=== PATIENT | male | born 1980 | race Caucasian/White ===

== ENCOUNTER 2018-06-03 23:12 | Inpatient (IN) | payer OTHER ==
[2018-06-03 23:27] VITALS: BMI 36.1
[2018-06-04] MEDS ORDERED: SODIUM CHLORIDE 0.9% 1000 ML INFUS.BAG IV ONE (01:22)
[2018-06-04] MEDS ORDERED: METOCLOPRAMIDE HCL INJECTION 10 MG/2 ML VIAL IVPUSH ONE (01:22)
[2018-06-04] MEDS ORDERED: FAMOTIDINE 20 MG/50 ML IVPB 20 MG/50 ML MG IVPB ONE (01:22)
[2018-06-04] MEDS ORDERED: ACETAMINOPHEN 1000 MG/100 ML VIAL (NON FORMULARY) IVPB ONE (01:22)
[2018-06-04] MEDS ORDERED: METOCLOPRAMIDE HCL INJECTION 10 MG/2 ML VIAL ONE (01:24)
[2018-06-04 01:59] LABS: BASO % 0.8 % (0-2.0); EOS % 0.5 % (0-4.5); HEMATOCRIT 42.6 % (35.4-49); HEMOGLOBIN 14.7 GM/dL (11.7-16.9); LYMPH % 16.9 % (8-40); MCH 31.9 pg (25.7-33.7); MCHC 34.5 g/dl (32.0-35.9); MEAN CELL VOLUME 92.5 fl (80-96); MEAN PLT VOLUME 9.8 fl (7.5-11.1); NEUT % 66.8 % (42.8-82.8); PLATELET COUNT 114 K/MM3 (134-434); RDW 13.8 % (11.9-15.9); WHITE BLOOD COUNT 6.3 K/mm3 (4.0-10.0)
[2018-06-04 02:00] LABS: VENOUS PC02 38.4 mmHg (41-51); VENOUS PH 7.42 (7.31-7.41)
--- NOTE | 2018-06-04 02:07 | PDOC ---
Documentation entered by Jhonny Streeter SCRIBE, acting as scribe for Jovita Robertson DO. Jovita Robertson DO: This documentation has been prepared by the Syl ardon Nirvannie, SCRIBE, under my direction and personally reviewed by me in its entirety. I confirm that the documentation accurately reflects all work, treatment, procedures, and medical decision making performed by me. History of Present Illness - General Chief Complaint: Weakness Stated Complaint: PAIN Time Seen by Provider: 06/04/18 01:05 History Source: Patient Exam Limitations: No Limitations - History of Present Illness Initial Comments: 06/04/18 02:14 The patient is a 37 year old male, with a significant past medical history of MS , who presents to the emergency department with, 4 days of diffuse weakness and dizziness after receiving his first infusion of Ocrevus. He notes 4 days ago during his infusion he was pre-treated with Benadryl and Solumedrol, however, snf through his infusion he developed a rash to his face and head thus, he was administered more Benadryl and steroids and the remainder of his infusion. Patient notes an associated 5 episode of diarrhea with associated burning epigastric pain, today prompting his to call his neurologists colleague who advised him to drink Gatorade and report to the ED for further evaluation for any new or worsening symptoms. He denies any recent fevers or chills. He denies any recent nausea, vomit, or constipation. He denies any recent chest pain or shortness of breath. He denies any recent dysuria, frequency, urgency or hematuria. Allergies: [facility] Primary Care Physician: Dr. Mohan Neurologist: Dr. Kenzie Caicedo ([facility]) Past History - Past Medical History Allergies/Adverse Reactions: Allergies Allergy/AdvReac Type Severity Reaction Status Date / Time No Known Allergies Allergy Verified 06/03/18 23:27 Home Medications: Ambulatory Orders Acetaminophen W/ Codeine #3 [Tylenol # 3 -] 1 tab PO Q6H PRN 06/04/18 Baclofen 5 mg PO PRN 06/04/18 Cancer: (Benign Frontal lob lesion/Treated w/steroids) COPD: No Other medical history: MULTIPLE SCLEROSIS - Immunization History Immunization Up to Date: Yes - Suicide/Smoking/Psychosocial Hx Smoking Status: No Smoking History: Never smoked Have you smoked in the past 12 months: No Number of Cigarettes Smoked Daily: 0 Hx Alcohol Use: No Drug/Substance Use Hx: No Substance Use Type: None Hx Substance Use Treatment: No Review of Systems - Review of Systems Able to Perform ROS?: Yes Comments:: 06/04/18 02:14 GENERAL/CONSTITUTIONAL: +Weakness. No fever or chills. HEAD, EYES, EARS, NOSE AND THROAT: No change in vision. No ear pain or discharge. No sore throat. GASTROINTESTINAL: +Diarrhea. No nausea, vomiting, or constipation. GENITOURINARY: No dysuria, frequency, or change in urination. CARDIOVASCULAR: No chest pain or shortness of breath. RESPIRATORY: No cough, wheezing, or hemoptysis. MUSCULOSKELETAL: No joint or muscle swelling or pain. No neck or back pain. SKIN: No rash NEUROLOGIC: +Dizziness. No headache, loss of consciousness, or change in strength/sensation. ENDOCRINE: No increased thirst. No abnormal weight change. HEMATOLOGIC/LYMPHATIC: No anemia, easy bleeding, or history of blood clots. ALLERGIC/IMMUNOLOGIC: No hives or skin allergy. All Other Systems: Reviewed and Negative *Physical Exam - Vital Signs Last Vital Signs Temp Pulse Resp BP Pulse Ox 98.1 F 73 18 142/94 94 L 06/03/18 23:23 06/03/18 23:23 06/03/18 23:23 06/03/18 23:23 06/03/18 23:23 - Physical Exam Comments: 06/04/18 02:14 Constitutional: +Fatigue and weak appearing. +Pale. Awake, alert, oriented. No acute distress. Head: Normocephalic. Atraumatic Eyes: PERRL. EOMI. Conjunctivae are not pale. ENT: +Mucous membranes are dry. Posterior pharynx without exudates or erythema. Uvula midline. Neck: Supple. Full ROM. No lymphadenopathy. Cardiovascular: Regular rate. Regular rhythm. S1, S2 regular. Distal pulses are 2+ and symmetric. Pulmonary/Chest: No evidence of respiratory distress. Clear to auscultation bilaterally No wheezing, rales or rhonchi. Abdominal: +Mild epigastric discomfort. Soft and non-distended. No rebound, guarding or rigidity. No organomegaly. No palpable masses. Good bowel sounds. Back: No CVA tenderness. Musculoskeletal: No edema. No cyanosis. No clubbing. Full range of motion in all extremities. No calf tenderness. Radial/pedal pulses are intact and 2+ bilaterally Skin: Skin is warm and dry. No petechiae. No purpura. Neurological: +Speaking is short sentences. Alert and oriented to person, place , and time. Cranial nerves II-XII are grossly intact. Strength is grossly symmetric. No sensory deficits. Psychiatric: Good eye contact. Normal interaction, affect and behavior. Heart Score/ECG Review - ECG Intrepretation Comment:: 06/04/18 02:09 sinus antoine at 54, nl axis, t wave inversions III, early repol, peaked t waves anterior leads, no acute st changes ED Treatment Course - LABORATORY CBC & Chemistry Diagram: 06/04/18 01:45 06/04/18 01:45 - RADIOLOGY Radiology Studies Ordered: Category Date Time Status CHEST - PA [RAD] Stat Radiology 06/04/18 01:23 Ordered - Medications Given in the ED: ED Medications Discontinued Medications Generic Name Dose Route Start Last Admin Trade Name Jelaniq PRN Reason Stop Dose Admin Metoclopramide HCl 10 mg 06/04/18 01:22 06/04/18 01:27 Reglan Injection - IVPUSH 06/04/18 01:23 10 mg ONCE ONE Administration Sodium Chloride 1,000 ml 06/04/18 01:22 06/04/18 01:23 Normal Saline - IV 06/04/18 01:23 1,000 ml ONCE ONE Administration Medical Decision Making - Medical Decision Making 06/04/18 01:40 a/p: 37yo male with hx of MS who follows with [facility] who had a new infusion of Ocrevus on Friday for his MS -had a transfusion reaction after it was performed -diarrhea since -generally weak -decreased po intake -pt needing assitance for ambulation -will send labs, medicate, ivf hydration -routing medication - though first dose of this IV med -no recent flairups of his MS -will monitor and reassess 06/04/18 02:18 no elevated wbc chem pending pt signed out to the oncoming ED physician pending labs and discussion with PMD *DC/Admit/Observation/Transfer Diagnosis at time of Disposition: Adverse drug reaction - Discharge Dispostion Condition at time of disposition: Fair - Referrals Referrals: ON STAFF,NOT [Non Staff, Medical] - - Patient Instructions - Post Discharge Activity - Attestations Physician Attestion: 06/04/18 02:19 I, Dr. Jovita Robertson, DO, attest that this document has been prepared under my direction and personally reviewed by me in its entirety. I further attest, that it accurately reflects all work, treatment, procedures and medical decision -making performed by me.
[2018-06-04 02:20] LABS: ALBUMIN 3.3 g/dl (3.4-5.0); ALK PHOS 63 U/L (45-117); ANION GAP 5 MMOL/L (8-16); BILIRUBIN,TOTAL 0.6 mg/dL (0.2-1); BLOOD UREA NITROGEN 14 mg/dL (7-18); CALCIUM 8.4 mg/dL (8.5-10.1); CHLORIDE 110 mmol/L (98-107); CO2 28 mmol/L (21-32); CREATININE 0.8 mg/dL (0.55-1.3); GLUCOSE,RANDOM 104 mg/dL (74-106); LIPASE 170 U/L (73-393); MAGNESIUM 2.1 mg/dL (1.8-2.4); POTASSIUM 3.7 mmol/L (3.5-5.1); SGOT/AST 19 U/L (15-37); SGPT/ALT 36 U/L (13-61); SODIUM 143 mmol/L (136-145); TOT PROT 6.2 g/dl (6.4-8.2)
[2018-06-04 02:46] LABS: URINE APPEARANCE CLEAR; URINE BILIRUBIN NEGATIVE (NEGATIVE); URINE COLOR YELLOW; URINE GLUCOSE (UA) NEGATIVE (NEGATIVE); URINE KETONE NEGATIVE (NEGATIVE); URINE LEUK ESTERASE NEGATIVE (NEGATIVE); URINE NITRITE NEGATIVE (NEGATIVE); URINE PROTEIN NEGATIVE (NEGATIVE); URINE UROBILINOGEN 0.2 mg/dL (0.2-1.0)
--- NOTE | 2018-06-04 05:27 | PDOC ---
*Physical Exam - Vital Signs Last Vital Signs Temp Pulse Resp BP Pulse Ox 98.1 F 58 L 18 89/51 L 96 06/04/18 04:32 06/04/18 04:32 06/03/18 23:23 06/04/18 04:32 06/04/18 04:32 ED Treatment Course - LABORATORY CBC & Chemistry Diagram: 06/04/18 01:45 06/04/18 01:45 - ADDITIONAL ORDERS Additional order review: Laboratory Results 06/04/18 06/04/18 06/04/18 01:45 01:45 01:45 VBG pH 7.42 H POC VBG pCO2 38.4 L POC VBG pO2 126 H VBG HCO3 24.6 VBG O2 Sat ([place]) 99.0 H VBG Base Excess 0.8 Sodium 143 Potassium 3.7 Chloride 110 H Carbon Dioxide 28 Anion Gap 5 L BUN 14 Creatinine 0.8 Creat Clearance w eGFR 107.62 Random Glucose 104 Lactic Acid 1.2 Calcium 8.4 L Magnesium 2.1 Total Bilirubin 0.6 AST 19 ALT 36 Alkaline Phosphatase 63 Total Protein 6.2 L Albumin 3.3 L Lipase 170 Urine Color Urine Appearance Urine pH Ur Specific [place] Urine Protein Urine Glucose (UA) Urine Ketones Urine Blood Urine Nitrite Urine Bilirubin Urine Urobilinogen Ur Leukocyte Esterase 06/04/18 01:22 VBG pH POC VBG pCO2 POC VBG pO2 VBG HCO3 VBG O2 Sat ([place]) VBG Base Excess Sodium Potassium Chloride Carbon Dioxide Anion Gap BUN Creatinine Creat Clearance w eGFR Random Glucose Lactic Acid Calcium Magnesium Total Bilirubin AST ALT Alkaline Phosphatase Total Protein Albumin Lipase Urine Color Yellow Urine Appearance Clear Urine pH 6.0 Ur Specific [place] 1.013 Urine Protein Negative Urine Glucose (UA) Negative Urine Ketones Negative Urine Blood Negative Urine Nitrite Negative Urine Bilirubin Negative Urine Urobilinogen 0.2 Ur Leukocyte Esterase Negative 06/04/18 01:45 RBC 4.60 MCV 92.5 MCHC 34.5 RDW 13.8 MPV 9.8 Neutrophils % 66.8 D Lymphocytes % 16.9 D Monocytes % 15.0 H D Eosinophils % 0.5 D Basophils % 0.8 D - Medications Given in the ED: ED Medications Discontinued Medications Generic Name Dose Route Start Last Admin Trade Name Freq PRN Reason Stop Dose Admin Acetaminophen 1,000 mg 06/04/18 01:22 06/04/18 03:48 Ofirmev Injection - IVPB 04/25/19 01:23 1,000 mg ONCE ONE Administration Famotidine/Sodium Chloride 20 mg in 50 mls @ 100 mls/hr 06/04/18 01:22 03:49 Pepcid 20 Mg Premixed Ivpb - IVPB 06/04/18 01:51 100 mls/hr ONCE ONE Administration Metoclopramide HCl 10 mg 06/04/18 01:22 06/04/18 01:27 Reglan Injection - IVPUSH 06/04/18 01:23 10 mg ONCE ONE Administration Sodium Chloride 1,000 ml 06/04/18 01:22 06/04/18 01:23 Normal Saline - IV 06/04/18 01:23 1,000 ml ONCE ONE Administration Medical Decision Making - Medical Decision Making 06/04/18 05:51 37-year-old male signed out to me pending lab results for admission Patient states he still feels extremely weak Repeat blood pressures within normal limits Case discussed with hospitalist service, will admit for further evaluation and likely neurology consult. *DC/Admit/Observation/Transfer Diagnosis at time of Disposition: Adverse drug reaction - Discharge Dispostion Condition at time of disposition: Fair Decision to Admit order Date/Time: Decision to Admit Order Category Date Time Status Decision to Admit to Hospital Routine Admission 06/04/18 04:33 Active - Referrals Referrals: ON STAFF,NOT [Non Staff, Medical] - - Patient Instructions - Post Discharge Activity
--- NOTE | 2018-06-04 05:47 | PN ---
Teaching Attending Note Name of Resident: Erick Dietz ATTENDING PHYSICIAN STATEMENT I saw and evaluated the patient. I reviewed the resident's note and discussed the case with the resident. I agree with the resident's findings and plan as documented. SUBJECTIVE: Patient is a 37 year old man with PMH of multiple sclerosis, chronic low back pain, benign frontal lobe lesion and prior therapy with medical marijuana who presents to the ER with, 4 days of diffuse weakness and dizziness after receiving his first infusion of Ocrevus. He notes 4 days ago during his infusion he was pre-treated with Benadryl and Solumedrol, however, mcc through his infusion he developed a rash to his face and head thus, he was administered more Benadryl and steroids and the remainder of his infusion. Patient notes an associated 5 episode of diarrhea with associated burning epigastric pain, today prompting his to call his neurologists colleague who advised him to drink Gatorade and report to the ED for further evaluation for any new or worsening symptoms. He denies any recent fevers or chills. He denies any recent nausea, vomit, or constipation. He denies any recent chest pain or shortness of breath. He denies any recent dysuria, frequency, urgency or hematuria. OBJECTIVE: Alert and weak Vital Signs Period Temp Pulse Resp BP Sys/Moralez Pulse Ox Last 24 Hr 98.1 F-98.1 F 58-73 18 89-142/51-94 94-96 HEENT: No Jaundice, eye redness or discharge, PERRLA, EOMI. Normocephalic, atraumatic. External ears are normal and hearing is grossly intact. No nasal discharge. Neck: Supple, nontender. No palpable adenopathy or thyromegaly. No JVD Chest: Good effort. Clear to auscultation and percussion. Heart: Regular. No S3, rub or murmur Abdomen: Not distended, soft, epigastric tenderness and no HSM. No rebound or guarding. Normal bowel sounds. Ext: Peripheral pulses intact. No leg edema. Skin: Warm and dry. No petechiae, rash or ecchymosis. Neuro: Alert. Oriented x3. CN 2-12 grossly intact. Sensation grossly intact in all four extremities and DTR are symmetric. Psych: Appropriate mood and affect. Good insight. Home Medications Medication Instructions Recorded Acetaminophen W/ Codeine #3 1 tab PO Q6H PRN 06/04/18 [Tylenol # 3 -] Baclofen 5 mg PO PRN 06/04/18 Abnormal Lab Results 06/04/18 06/04/18 06/04/18 01:45 01:45 01:45 Plt Count 114 L D Monocytes % 15.0 H D VBG pH 7.42 H POC VBG pCO2 38.4 L POC VBG pO2 126 H VBG O2 Sat ([place]) 99.0 H Chloride 110 H Anion Gap 5 L Calcium 8.4 L Total Protein 6.2 L Albumin 3.3 L ASSESSMENT AND PLAN: 1. Weakness/Dizziness and Diarrhea - Symptoms may be related to recent infusion of Ocrevus for MS. No acute abnormality on CXR. EKG shows sinus bradycardia with no significant ST-T wave changes. Will get Flu swab, TSH, monitor all electrolytes and get CT abdomen. Send any diarrheal stool for culture, leukocytes, ova and parasites and C. Diff. Give IV LR and consult neurology. 2. Hypoalbuminemia - Possibly due to combined effects of malnutrition and inflammation associated with comorbid chronic conditions. Will ensure adequate dietary protein intake and also consult cream dipper. 3. Obesity Counseled on the risks associated with obesity. Will provide patient all the necessary assistance, counseling and positive reinforcement to facilitate weight loss. Consult cream dipper. 4. DVT prophylaxis - Lovenox 40 mg SQ q 24 hours. 5. Advance directives - Full code
[2018-06-04] MEDS ORDERED: LACTATED RINGERS SOLUTION 1,000 ML/1,000 ML INFUS.BAG IV SCH (06:15)
--- NOTE | 2018-06-04 06:20 | HP ---
CHIEF COMPLAINT: Generalized weakness after Ocrevus infusion PCP: Dr Nadine Mohan HISTORY OF PRESENT ILLNESS: Pt is a 37 y/o gentleman with a significant past medical history of multiple sclerosis who presented to [facility] due to generalized weakness. Pt endorses that he received an I.V infusion of Octrevus (a CD20+ monoclonal Ab for Multiple sclerosis) this past Friday at [facility]. Pt began to develop a rash on his head and the left side of his face shortly after starting the infusion. Infusion was withheld and pt was administered Solu-medrol and Benadryl. The following day, pt began to feel very withdrawn. Pt also endorses having a headache during this time and took Tylenol which partially assuaged his pain. Furthermore, pt endorses he has been lightheaded and having to use the restroom more frequently noticing "floating stools". Pt further endorses that he noticed his heart rate has been rather low measuring 49 beats while he was watching televsion. Denies chest pain, shortness of breath, vomiting, or syncope. PMH- MS SurgHx- Multiple Spinal taps Social Hx- Denies Tobacco and Alcohol Use/Drug use FH- Father DM, Mother HTN, arthritis. Sister with MS NKDA ER course was notable for: (1) CXR--> No evidence of active pulmonary disease. (2) Rapid Influenza Negative HOME MEDICATIONS: Home Medications Medication Instructions Recorded Acetaminophen W/ Codeine #3 1 tab PO Q6H PRN 06/04/18 [Tylenol # 3 -] Baclofen 5 mg PO PRN 06/04/18 REVIEW OF SYSTEMS CONSTITUTIONAL: PRESENT: generalized weakness, malaise, HEENT: Absent: rhinorrhea, nasal congestion, throat pain, throat swelling, difficulty swallowing, mouth swelling, ear pain, eye pain, visual changes CARDIOVASCULAR: Absent: chest pain, syncope, palpitations, irregular heart rate, lightheadedness , peripheral edema RESPIRATORY: Absent: cough, shortness of breath, dyspnea with exertion, orthopnea, wheezing, stridor, hemoptysis GASTROINTESTINAL: PRESENT nausea, , diarrhea, GENITOURINARY: Absent: dysuria, frequency, urgency, hesitancy, hematuria, flank pain, genital pain MUSCULOSKELETAL: Absent: myalgia, arthralgia, joint swelling, back pain, neck pain SKIN: Absent: rash, itching, pallor HEMATOLOGIC/IMMUNOLOGIC: Absent: easy bleeding, easy bruising, lymphadenopathy, frequent infections ENDOCRINE: Absent: unexplained weight gain, unexplained weight loss, heat intolerance, cold intolerance NEUROLOGIC: Absent: headache, focal weakness or paresthesias, dizziness, unsteady gait, seizure, mental status changes, bladder or bowel incontinence PSYCHIATRIC: Absent: anxiety, depression, suicidal or homicidal ideation, hallucinations. PHYSICAL EXAMINATION Vital Signs - 24 hr 06/03/18 06/04/18 06/04/18 23:23 04:32 05:17 Temperature 98.1 F 98.1 F Pulse Rate 73 Pulse Rate [ 58 L Left Radial] Respiratory 18 Rate Blood Pressure 142/94 Blood Pressure 89/51 L 130/90 [Right Arm] O2 Sat by Pulse 94 L 96 Oximetry (%) GENERAL: Drowsy, AAOx3 HEAD: Normal with no signs of trauma. EYES: EOMI, Sclera Clear EARS, NOSE, THROAT: MMM NECK: Supple LUNGS:CTAB HEART: Regular rhythm, bradycardic ABDOMEN: Obese Nondistended nontender LOWER EXTREMITIES: No CCE NEUROLOGICAL: Cranial nerves II-XII intact. Normal speech. PSYCHIATRIC: Cooperative. Good eye contact. Appropriate mood and affect. SKIN: Warm, dry, normal turgor, no rashes or lesions noted, normal capillary refill. Laboratory Results - last 24 hr 06/04/18 06/04/18 06/04/18 01:22 01:45 01:45 WBC 6.3 RBC 4.60 Hgb 14.7 Hct 42.6 MCV 92.5 MCH 31.9 MCHC 34.5 RDW 13.8 Plt Count 114 L D MPV 9.8 Absolute Neuts (auto) 4.2 Neutrophils % 66.8 D Lymphocytes % 16.9 D Monocytes % 15.0 H D Eosinophils % 0.5 D Basophils % 0.8 D Nucleated RBC % 0 VBG pH 7.42 H POC VBG pCO2 38.4 L POC VBG pO2 126 H VBG HCO3 24.6 VBG O2 Sat ([place]) 99.0 H VBG Base Excess 0.8 Sodium Potassium Chloride Carbon Dioxide Anion Gap BUN Creatinine Creat Clearance w eGFR Random Glucose Lactic Acid Calcium Magnesium Total Bilirubin AST ALT Alkaline Phosphatase Total Protein Albumin Lipase Urine Color Yellow Urine Appearance Clear Urine pH 6.0 Ur Specific [place] 1.013 Urine Protein Negative Urine Glucose (UA) Negative Urine Ketones Negative Urine Blood Negative Urine Nitrite Negative Urine Bilirubin Negative Urine Urobilinogen 0.2 Ur Leukocyte Esterase Negative 06/04/18 06/04/18 01:45 01:45 WBC RBC Hgb Hct MCV MCH MCHC RDW Plt Count MPV Absolute Neuts (auto) Neutrophils % Lymphocytes % Monocytes % Eosinophils % Basophils % Nucleated RBC % VBG pH POC VBG pCO2 POC VBG pO2 VBG HCO3 VBG O2 Sat ([place]) VBG Base Excess Sodium 143 Potassium 3.7 Chloride 110 H Carbon Dioxide 28 Anion Gap 5 L BUN 14 Creatinine 0.8 Creat Clearance w eGFR 107.62 Random Glucose 104 Lactic Acid 1.2 Calcium 8.4 L Magnesium 2.1 Total Bilirubin 0.6 AST 19 ALT 36 Alkaline Phosphatase 63 Total Protein 6.2 L Albumin 3.3 L Lipase 170 Urine Color Urine Appearance Urine pH Ur Specific [place] Urine Protein Urine Glucose (UA) Urine Ketones Urine Blood Urine Nitrite Urine Bilirubin Urine Urobilinogen Ur Leukocyte Esterase ASSESSMENT/PLAN: Pt is a 37 y/o gentleman with a significant past medical history of multiple sclerosis who presented to [facility] due to generalized weakness. # Adverse Medication reaction -Rash, generalized weakness, diarrhea commencing after I.V Ocrevus infusion. -Rapid influenza negative. Monitor Electrolytes. Will place on LR@100cc/hr. EKG with peaked T Waves in V2 and V5. Serum K 3.7. EKG changes possibly 2/2 lead - Misplacement. Repeat K+ later in day. Repeat EKG as well. -Neurology consult -CTAP -In light of recent Diarrhea Stool for culture, leukocytes, ova and parasites and C. Diff. # FEN LR@100cc/hr Monitor Electrolytes Regular Diet #DVT ppx SCDs #Dispo: Med-Surg Visit type - Emergency Visit Emergency Visit: Yes Care time: The patient presented to the Emergency Department on the above date and was hospitalized for further evaluation of their emergent condition. - New Patient This patient is new to me today: Yes Date on this admission: 06/04/18 - Critical Care Critical Care patient: No
--- NOTE | 2018-06-04 08:45 | DS ---
Physical Examination Vital Signs: Vital Signs Temperature 98.1 F 06/04/18 04:32 Pulse Rate 58 L 06/04/18 04:32 Respiratory Rate 18 06/04/18 07:44 Blood Pressure 130/90 06/04/18 05:17 O2 Sat by Pulse Oximetry (%) 96 06/04/18 07:44 Constitutional: Yes: Calm, Obese Eyes: Yes: EOM Intact HENT: Yes: Normocephalic Neck: Yes: Trachea Midline Cardiovascular: Yes: Regular Rate and Rhythm, Bradycardia Respiratory: Yes: CTA Bilaterally Gastrointestinal: Yes: Normal Bowel Sounds, Soft, Abdomen, Obese. No: Distention, Palpable Mass, Tenderness Extremities: Yes: WNL Edema: No Peripheral Pulses WNL: Yes Neurological: Yes: WNL Psychiatric: Yes: WNL Labs: CBC, BMP 06/04/18 01:45 06/04/18 01:45 Discharge Summary Reason For Visit: EXCERBATION OF MULTIPLE SCLEROSIS Current Active Problems Adverse drug reaction (Acute) Hospital Course: 37 yo man with long h/o MS received his first Ocrevus infusion 3 days ago, it was complicated by infusion reaction with generalized itching, received iv steroid to alleviate the symptoms since then has felt quite weak, poor appetite and loose BMs. Came to er for evaluation. CXR, UA clear, labs are all within normal, initially hypotensive but much improved with iv hydration. symptoms are likely due to ocrevus side-effects. no sign of infection, medically stable to go home and f/up as outpt will need to discuss future MS care and if he in fact can tolerate repeat ocrevus with neurologist Condition: Fair - Instructions Diet, Activity, Other Instructions: f/up dr Mohan tomorrow am Disposition: HOME - Home Medications Comprehensive Discharge Medication List: Ambulatory Orders Acetaminophen W/ Codeine #3 [Tylenol # 3 -] 1 tab PO Q6H PRN 06/04/18 Baclofen 5 mg PO PRN 06/04/18
[2018-06-04 09:03] VITALS: BP 124/80; PULSE 60; TEMP 98
--- NOTE | 2018-06-04 12:07 | EKG ---
Test Reason : Blood Pressure : / mmHG Vent. Rate : 054 BPM Atrial Rate : 054 BPM P-R Int : 152 ms QRS Dur : 090 ms QT Int : 454 ms P-R-T Axes : 052 016 013 degrees QTc Int : 430 ms SINUS BRADYCARDIA EARLY REPOLARIZATION OTHERWISE NORMAL ECG WHEN COMPARED WITH ECG OF 05-AUG-2016 19:22, VENT. RATE HAS DECREASED BY 36 BPM Confirmed by CHRIST SMITH MD ([id number]) on 06/04/2018 12:06:32 PM Referred By: Confirmed By:CHRIST SMITH MD
== END 2018-06-05 08:38 | disposition home or self-care (01) | DRG 395 ==
LOC: JER 23:12 → SUPCPDRO 23:12 → JERBED 06-04 04:32 → J6S 06-04 14:18 → JERBED 06-04 14:41
PROVIDERS: ADMIT Internal Medicine; ATTEND Internal Medicine
DX: K52.1 Toxic gastroenteritis and colitis (principal); L27.0 Generalized skin eruption due to drugs and medicaments taken internally; T50.995A Adverse effect of other drugs, medicaments and biological substances, initial encounter; Y92.89 Other specified places as the place of occurrence of the external cause; E88.09 Other disorders of plasma-protein metabolism, not elsewhere classified; E66.9 Obesity, unspecified; Z68.36 Body mass index [BMI] 36.0-36.9, adult
CPT/HCPCS: 36415; 71045-TC-FY; 80053; 81003; 82803; 83605; 83690; 83735; 85025; 87804; 93005; 93010; 99285-25; J0131; J7030

== ENCOUNTER 2018-08-03 14:59 | Emergency (ER) | payer OTHER ==
--- NOTE | 2018-08-03 15:03 | PDOC ---
Rapid Medical Evaluation Time Seen by Provider: 08/03/18 15:00 Medical Evaluation: Allergies Allergy/AdvReac Type Severity Reaction Status Date / Time No Known Allergies Allergy Verified 06/03/18 23:27 08/03/18 15:00 I have performed a brief in-person evaluation of this patient. The patient presents with a chief complaint of: palpitations and SOB. States HR- 130's at home Pertinent physical exam findings: Tachycardia-105 apically. Lungs CTAB. No m/r/ g. I have ordered the following: cardiac w/u The patient will proceed to the ED for further evaluation. Discharge Disposition - Diagnosis Palpitations - Referrals - Patient Instructions - Post Discharge Activity
[2018-08-03 15:05] VITALS: BMI 35.8
--- NOTE | 2018-08-03 15:24 | PDOC ---
History of Present Illness <Megan Garcia - Last Filed: 08/03/18 19:30> - General History Source: Patient Exam Limitations: No Limitations - History of Present Illness Initial Comments: 08/03/18 16:26 37 year old male with PMH MS, mitral valve regurgitation presented to ED for palpitations since 1430 today. Pt reported he was resting, when all of a sudden he felt his heart racing. He went to lie down and took his pulse on his phone, which was 130. Pt reported he developed shortness of breath and intermittent chest pain. Pt reported his chest pain is left sided, intermittent, sharp, non- radiating, no alleviating or aggravating factors. Pt denied recent travel>5 hours, bed rest>3 days, active malignancy <6 months, surgery <4 weeks, hormone use, hemoptysis, hx DVT/PE. Pt reported a month ago he had an episode of bradycardia with his MS treatment infusion, followed up with Dr. Murray, was supposed to get a holter monitor but it was never approved by insurance. <OrquideaEna - Last Filed: 08/04/18 09:19> - General Chief Complaint: Palpitations Stated Complaint: palpitations/dif breathing Time Seen by Provider: 08/03/18 15:00 Past History <Megan Garcia - Last Filed: 08/03/18 19:30> - Past Medical History Cancer: (Benign Frontal lob lesion/Treated w/steroids) Cardiac Disorders: Yes (MV regurg) COPD: No Other medical history: MS - Immunization History Immunization Up to Date: Yes - Suicide/Smoking/Psychosocial Hx Smoking Status: No Smoking History: Never smoked Have you smoked in the past 12 months: No Number of Cigarettes Smoked Daily: 0 Hx Alcohol Use: No Drug/Substance Use Hx: No Substance Use Type: None Hx Substance Use Treatment: No <OrquideaEna - Last Filed: 08/04/18 09:19> - Past Medical History Allergies/Adverse Reactions: Allergies Allergy/AdvReac Type Severity Reaction Status Date / Time No Known Allergies Allergy Verified 08/03/18 15:01 Home Medications: Ambulatory Orders Acetaminophen W/ Codeine #3 [Tylenol # 3 -] 1 tab PO Q6H PRN 06/04/18 Baclofen 5 mg PO PRN 06/04/18 Review of Systems - Review of Systems Able to Perform ROS?: Yes Comments:: 08/03/18 16:22 General: denied fever, chills, generalized weakness. HEENT: denied sore throat, rhinorrhea, ear pain. Heart: admitted to chest pain, palpitations. denied syncope, diaphoresis. Respiratory: admitted to shortness of breath. denied cough, sputum production, hemoptysis. Abdomen: denied abdominal pain, nausea, vomiting, diarrhea, constipation, blood in stool. : denied dysuria, increased urinary frequency, hematuria, urinary incontinence , flank pain. Back: denied back pain. Musculoskeletal: denied joint pain, muscle pain, joint swelling. Neurological: denied headache, dizziness, numbness, tingling, weakness. Skin: denied rash, laceration, abrasion. <Ena Heard - Last Filed: 08/04/18 09:19> *Physical Exam - Vital Signs Last Vital Signs Temp Pulse Resp BP Pulse Ox 97.4 F L 97 H 18 147/92 98 08/03/18 15:01 08/03/18 15:01 08/03/18 15:01 08/03/18 15:01 08/03/18 15:01 <Megan Garcia - Last Filed: 08/03/18 19:30> - Vital Signs Last Vital Signs Temp Pulse Resp BP Pulse Ox 97.4 F L 97 H 18 147/92 98 08/03/18 15:01 08/03/18 15:01 08/03/18 15:01 08/03/18 15:01 08/03/18 15:01 - Physical Exam Comments: 08/03/18 16:23 Constitutional: Well-nourished, Well-developed, appearing stated age. HEENT: head is normocephalic, atraumatic. EOMI. PERRLA. Neck: supple. Full ROM. Heart: regular rhythm. no murmurs, rubs or gallops. Lungs: clear to auscultation bilaterally. no crackles, rhonchi or wheezing. no stridor. Abdomen: soft, nontender. normal bowel sounds. no rebound, guarding, masses. Extremities: peripheral pulses intact. no lower extremity edema. Neurological: CN 2-12 grossly intact. moves all four extremities. Psych: awake, alert, oriented x3. follows commands. answers questions appropriately. <Ena Heard - Last Filed: 08/04/18 09:19> ED Treatment Course - LABORATORY CBC & Chemistry Diagram: 08/03/18 15:29 08/03/18 15:29 - ADDITIONAL ORDERS Additional order review: Laboratory Results 08/03/18 08/03/18 08/03/18 18:27 15:49 15:29 PT with INR INR Sodium 141 Potassium 4.3 Chloride 108 H Carbon Dioxide 28 Anion Gap 5 L BUN 13.4 Creatinine 0.9 Est GFR (CKD-EPI)AfAm 124.26 Est GFR (CKD-EPI)NonAf 107.21 Random Glucose 80 Calcium 8.7 Magnesium 2.4 Total Bilirubin 0.7 AST 16 ALT 26 Alkaline Phosphatase 85 Creatine Kinase 69 Troponin I < 0.02 < 0.02 Total Protein 6.8 Albumin 3.7 TSH 1.79 08/03/18 15:29 PT with INR 12.80 INR 1.08 Sodium Potassium Chloride Carbon Dioxide Anion Gap BUN Creatinine Est GFR (CKD-EPI)AfAm Est GFR (CKD-EPI)NonAf Random Glucose Calcium Magnesium Total Bilirubin AST ALT Alkaline Phosphatase Creatine Kinase Troponin I Total Protein Albumin TSH 08/03/18 15:29 RBC 4.79 MCV 92.3 MCHC 34.5 RDW 14.0 MPV 10.1 Neutrophils % 70.4 Lymphocytes % 15.8 Monocytes % 11.3 H Eosinophils % 2.0 D Basophils % 0.5 <Garcia,Mary - Last Filed: 08/03/18 19:30> - LABORATORY CBC & Chemistry Diagram: 08/03/18 15:29 08/03/18 15:29 <Ena Heard - Last Filed: 08/04/18 09:19> Medical Decision Making - Medical Decision Making 08/03/18 16:23 37 year old male with above PMH presented to ED for palpitations, shortness of breath, chest pain since 1430 today. Initial Vital Signs Temp Pulse Resp BP Pulse Ox 97.4 F L 97 H 18 147/92 98 08/03/18 15:01 08/03/18 15:01 08/03/18 15:01 08/03/18 15:01 08/03/18 15:01 Afebrile. No tachycardia. No tachypnea. Mild hypertension. No hypoxia on room air. Labs ordered: CBC, CMP, troponin, TSH Imaging ordered: CXR Medications ordered: normal saline bolus 1000 cc EKG performed at 1501: rate 81, regular rhythm, normal axis, normal intervals, biphasic T in III otherwise no acute ST changes. 08/03/18 16:39 CBC WBC 8.0 K/mm3 (4.0-10.0) 08/03/18 15:29 RBC 4.79 M/mm3 (4.00-5.60) 08/03/18 15:29 Hgb 15.2 GM/dL (11.7-16.9) 08/03/18 15:29 Hct 44.2 % (35.4-49) 08/03/18 15:29 MCV 92.3 fl (80-96) 08/03/18 15: MCH 31.8 pg (25.7-33.7) 08/03/18 15: MCHC 34.5 g/dl (32.0-35.9) 08/03/18 15:29 RDW 14.0 % (11.9-15.9) 08/03/18 15:29 Plt Count 187 K/MM3 (134-434) D 08/03/18 15:29 MPV 10.1 fl (7.5-11.1) 08/03/18 15:29 Absolute Neuts (auto) 5.6 K/mm3 (1.5-8.0) 08/03/18 15:29 Neutrophils % 70.4 % (42.8-82.8) 08/03/18 15:29 Lymphocytes % 15.8 % (8-40) 08/03/18 15:29 Monocytes % 11.3 % (3.8-10.2) H 08/03/18 15:29 Eosinophils % 2.0 % (0-4.5) D 08/03/18 15:29 Basophils % 0.5 % (0-2.0) 08/03/18 15: Nucleated RBC % 0 % (0-0) 08/03/18 15:29 No leukocytosis. No anemia. 08/03/18 16:42 CMP Sodium 141 mmol/L (136-145) 08/03/18 15:29 Potassium 4.3 mmol/L (3.5-5.1) 08/03/18 15:29 Chloride 108 mmol/L (98-107) H 08/03/18 15:29 Carbon Dioxide 28 mmol/L (21-32) 08/03/18 15:29 Anion Gap 5 MMOL/L (8-16) L 08/03/18 15:29 BUN 13.4 mg/dL (7-18) 08/03/18 15:29 Creatinine 0.9 mg/dL (0.55-1.3) 08/03/18 15:29 Est GFR (CKD-EPI)AfAm 124.26 08/03/18 15:29 Est GFR (CKD-EPI)NonAf 107.21 08/03/18 15:29 Random Glucose 80 mg/dL (74-106) 08/03/18 15:29 Calcium 8.7 mg/dL (8.5-10.1) 08/03/18 15:29 Magnesium 2.4 mg/dL (1.8-2.4) 08/03/18 15:29 Total Bilirubin 0.7 mg/dL (0.2-1) 08/03/18 15:29 AST 16 U/L (15-37) 08/03/18 15:29 ALT 26 U/L (13-61) 08/03/18 15:29 Alkaline Phosphatase 85 U/L (45-117) 08/03/18 15:29 Creatine Kinase 69 U/L (26-308) 08/03/18 15:29 Troponin I < 0.02 ng/ml (0.00-0.05) 08/03/18 15:29 Total Protein 6.8 g/dl (6.4-8.2) 08/03/18 15:29 Albumin 3.7 g/dl (3.4-5.0) 08/03/18 15:29 TSH 1.79 uIU/ml (0.358-3.74) 08/03/18 15:49 No electrolyte abnormalities. No LILLIAN. No transaminitis. Troponin wnl TSH wnl 08/03/18 17:[address] Perez's view: sharp costophrenic angles. no infiltrate. sharp heart borders. no cardiomegaly. no large pneumothorax. -Pending official report 08/03/18 17:56 CXR report: EXAM#: TYPE/EXAM: RESULT: [id number] RAD/CHEST PA LAT Chest: Chest pain 2 views of the chest reveal clear lungs, normal mediastinum and sharp angles. The bones and soft tissues are intact. Since 06/04/2018 there is no change of an adverse nature. Impression: No acute chest pathology. Reported By: Curtis Mclaughlin MD 08/03/18 1745 08/03/18 18:16 Dr. Murray paged. 08/03/18 18:[address] Sykes, covering for Dr. Murray, who advised outpatient appointment with him or Dr. Murray tomorrow. Pending repeat troponin. Pt now reports right knee pain s/p recent mechanical fall. Imaging ordered: right knee XR 08/03/18 18:32 Repeat EKG performed at 1816: rate 77, regular rhythm, normal axis, normal intervals, no acute ST changes. 08/03/18 18:51 Right knee XR my and Dr. Perez's view: no fracture or dislocation. -Pending offiical report. 08/03/18 19:00 Pt signed out to Dr. Roy. Pending repeat troponin. Pending Knee XR report. Pt to be discharged if troponin negative and follow up with cardiology tomorrow. 08/04/18 09:16 Follow up: Official knee XR report: 3 views of the right knee reveal no sign of fracture or subluxation and no sign of blastic or lytic changes. there is no sign of an effusion, foreign body, or soft tissue, air. there is a fibula. if symptoms persist, further imaging may be of help. Official CXR report: 2 views of the chest reveal clear lungs, normal mediastinum and sharp angles. the bones and soft tissues are intact. Since 2018 there is not change of an adverse nature. Impression: no acute chest pathology. Second troponin was negative. <Ena Heard - Last Filed: 08/04/18 09:19> *DC/Admit/Observation/Transfer - Discharge Dispostion Decision to Admit order: No <Megan Garcia - Last Filed: 08/03/18 19:30> - Discharge Dispostion Decision to Admit order: No <Ena Heard - Last Filed: 08/04/18 09:19> Diagnosis at time of Disposition: Palpitations - Discharge Dispostion Disposition: HOME Condition at time of disposition: Stable - Referrals Referrals: Zuleima Mohan MD [Primary Care Provider] - - Patient Instructions Printed Discharge Instructions: DI for Chest Pain, DI for Palpitations Additional Instructions: You were seen today for palpitations. Your lab work was normal. Your chest X-ray was normal. Follow up with Dr. Murray's office tomorrow AM. Call at 0800 AM and tell them you were told by the doctor that you will be seen tomorrow by a provider. You must follow up. Follow up with your primary care doctor within 3 days. Your care is not complete until you follow up. Bring all paperwork given to you today to your appointment. Return to the Emergency Department for increasing pain, shortness of breath, coughing up blood, lightheadedness like you may pass out, severe abdominal or back pain, or any other new, worsening or concerning symptoms. - Post Discharge Activity Forms/Work/School Notes: Back to Work
[2018-08-03] MEDS ORDERED: SODIUM CHLORIDE 1,000 ML IV STA (15:54)
[2018-08-03] MEDS ORDERED: ACETAMINOPHEN 1000 MG/100 ML VIAL (NON FORMULARY) IVPB ONE (15:54)
[2018-08-03 16:20] LABS: BASO % 0.5 % (0-2.0); HEMATOCRIT 44.2 % (35.4-49); HEMOGLOBIN 15.2 GM/dL (11.7-16.9); LYMPH % 15.8 % (8-40); MCH 31.8 pg (25.7-33.7); MCHC 34.5 g/dl (32.0-35.9); MEAN CELL VOLUME 92.3 fl (80-96); MEAN PLT VOLUME 10.1 fl (7.5-11.1); MONO % 11.3 % (3.8-10.2); NEUT % 70.4 % (42.8-82.8); PLATELET COUNT 187 K/MM3 (134-434); RBC 4.79 M/mm3 (4.00-5.60)
[2018-08-03 16:26] LABS: INR 1.08 (0.83-1.09); PROTHROMBIN TIME (PATIENT) 12.8 SEC (9.7-13.0)
[2018-08-03 16:31] LABS: ALBUMIN 3.7 g/dl (3.4-5.0); ALK PHOS 85 U/L (45-117); ANION GAP 5 MMOL/L (8-16); BILIRUBIN,TOTAL 0.7 mg/dL (0.2-1); BLOOD UREA NITROGEN 13.4 mg/dL (7-18); CALCIUM 8.7 mg/dL (8.5-10.1); CHLORIDE 108 mmol/L (98-107); CO2 28 mmol/L (21-32); CREATININE 0.9 mg/dL (0.55-1.3); GLUCOSE,RANDOM 80 mg/dL (74-106); MAGNESIUM 2.4 mg/dL (1.8-2.4); POTASSIUM 4.3 mmol/L (3.5-5.1); SGOT/AST 16 U/L (15-37); SGPT/ALT 26 U/L (13-61); SODIUM 141 mmol/L (136-145); TOT PROT 6.8 g/dl (6.4-8.2)
--- NOTE | 2018-08-03 18:25 | PDOC ---
Documentation entered by Adia Bobo SCRIBE, acting as scribe for Dawn Perez MD. Dawn Perez MD: This documentation has been prepared by the Jeramie ardon Adrianna, SCRIBE, under my direction and personally reviewed by me in its entirety. I confirm that the documentation accurately reflects all work, treatment, procedures, and medical decision making performed by me. Attending Attestation - Resident Resident Name: OrquideaEna - ED Attending Attestation I have performed the following: I have examined & evaluated the patient, The case was reviewed & discussed with the resident, I agree w/resident's findings & plan, Exceptions are as noted - HPI HPI: 37 Y M, with PMH of M, benign frontal lobe lesion (treated with steroids), and mitral valve regurgitation, who presents to the ED for evaluation of palpitations for 2 hours. Patient notes the palpitations were suddenly onset while at rest earlier today. He states he felt his heart began to race, and he measured his pulse at 130. also c/o intermittent sharp chest pain associated with the episode and sob. no radiation to pain, pain was sticking, shock like, sharp. He reports associated SOB and intermittent left-sided chest pain. Denies recent travel, hormone use, history of DVT or PE, and history of similar symptoms. no family h/o cad, pt does state he had a history of prior bradycardia from and infusion, followed up with Analy, had echo, was supposed to have holter monitor but couldn't get it approved through insurance. no h/o sudden collapse during excercise. Allergies: NKA, NKDA Surgical History: None reported Social History: None reported PCP: Dr. Zuleima Mohan - Physicial Exam PE: 08/03/18 18:18 awake alert lungs clear bilat heart heart rrr no mrg abd soft nt nd ext wwp. right knee mild contusion ttp over tibial tuberosity (small eccymosis) from. jeanieero alert oriented x 3. - Medical Decision Making EXAM#: TYPE/EXAM: RESULT: [id number] RAD/CHEST PA LAT Chest: Chest pain 2 views of the chest reveal clear lungs, normal mediastinum and sharp angles. The bones and soft tissues are intact. Since 06/04/2018 there is no change of an adverse nature. Impression: No acute chest pathology. Reported By: Curtis Mclaughlin MD 08/03/18 17:45 EXAM#: TYPE/EXAM: RESULT: [id number] RAD/KNEE 3 POS-RIGHT Right knee: Pain. 3 views of the right knee reveal no sign of fracture or subluxation and no sign of blastic or lytic changes. There is no sign of an effusion, foreign body or soft tissue air. There is a fibula. If symptoms persist, further imaging may be of help. Reported By: Curtis Mclaughlin MD 08/03/18 19:19 37 yo h/o mitral regurg, MS here with palpitations , differential : acs, dsrythmia, no RF for PE. yg obtain labs ekg trop. d/w Dr Murray. will see pt tomorrow. will obtain 3 hr troponin. remain in [facility] here today in the office. Heart Score/ECG Review #2 General ECG Interpretation: Sinus Rhythm, Normal Rate (77), Normal Intervals, No acute ischemic changes
[2018-08-03 20:09] VITALS: BP 143/95; PULSE 70; TEMP 98
--- NOTE | 2018-08-04 10:35 | EKG ---
Test Reason : Blood Pressure : / mmHG Vent. Rate : 081 BPM Atrial Rate : 081 BPM P-R Int : 134 ms QRS Dur : 082 ms QT Int : 360 ms P-R-T Axes : 067 017 026 degrees QTc Int : 418 ms POOR DATA QUALITY, INTERPRETATION MAY BE ADVERSELY AFFECTED NORMAL SINUS RHYTHM NORMAL ECG WHEN COMPARED WITH ECG OF 04-JUN-2018 01:57, VENT. RATE HAS INCREASED BY 27 BPM Confirmed by Salvatore Yen MD ([id number]) on 08/04/2018 10:35:26 AM Referred By: Confirmed By:Salvatore Yen MD
== END 2018-08-03 20:35 | disposition home or self-care (01) ==
LOC: JER 14:59
DX: R00.2 Palpitations (principal); M25.561 Pain in right knee; W19.XXXA Unspecified fall, initial encounter; Y93.89 Activity, other specified; Y92.89 Other specified places as the place of occurrence of the external cause; Y99.8 Other external cause status
CPT/HCPCS: 36415; 71046-TC-FY; 73562-TC-RT-FY; 80053; 82550; 83735; 84443; 84484; 85025; 85610; 93005; 93010; 99284-25

== ENCOUNTER 2018-10-07 14:12 | Emergency (ER) | payer OTHER ==
--- NOTE | 2018-10-07 14:20 | PDOC ---
Rapid Medical Evaluation Time Seen by Provider: 10/07/18 14:19 Medical Evaluation: Allergies Allergy/AdvReac Type Severity Reaction Status Date / Time No Known Allergies Allergy Verified 08/03/18 15:01 10/07/18 14:20 I have performed a brief in-person evaluation of this patient. The patient presents with a chief complaint of: CP this am. No sob, diaphoresis , n/v, palpitations, leg pain/swelling. H/o MS, not on meds. Denies illicit drug use Pertinent physical exam findings:stable and well autumn w/ clear chest/lungs I have ordered the following:ekg/cxr The patient will proceed to the ED for further evaluation. Discharge Disposition - Diagnosis Chest pain - Referrals - Patient Instructions - Post Discharge Activity
[2018-10-07 14:23] VITALS: BMI 36.3
--- NOTE | 2018-10-07 15:46 | PDOC ---
History of Present Illness - General Chief Complaint: Chest Pain Stated Complaint: CHEST PAIN Time Seen by Provider: 10/07/18 14:19 - History of Present Illness Initial Comments: 10/07/18 15:47 38 year old male with PMH MS, mitral valve regurgitation who presents Past History - Past Medical History Allergies/Adverse Reactions: Allergies Allergy/AdvReac Type Severity Reaction Status Date / Time No Known Allergies Allergy Verified 10/07/18 14:23 Home Medications: Ambulatory Orders Acetaminophen W/ Codeine #3 [Tylenol # 3 -] 1 tab PO Q6H PRN 06/04/18 Baclofen 5 mg PO PRN 06/04/18 Cancer: (Benign Frontal lob lesion/Treated w/steroids) Cardiac Disorders: Yes (MV regurg) COPD: No Other medical history: multiple sclerosis - Immunization History Immunization Up to Date: Yes - Suicide/Smoking/Psychosocial Hx Smoking Status: No Smoking History: Never smoked Have you smoked in the past 12 months: No Number of Cigarettes Smoked Daily: 0 Hx Alcohol Use: No Drug/Substance Use Hx: No Substance Use Type: None Hx Substance Use Treatment: No *Physical Exam - Vital Signs Last Vital Signs Temp Pulse Resp BP Pulse Ox 97.9 F 88 18 133/89 99 10/07/18 14:21 10/07/18 14:21 10/07/18 14:21 10/07/18 14:21 10/07/18 14:21 ED Treatment Course - RADIOLOGY Radiology Studies Ordered: Category Date Time Status CXRPORT [CHEST X-RAY PORTABLE*] [RAD] Stat Radiology 10/07/18 15:44 Stop Req *DC/Admit/Observation/Transfer Diagnosis at time of Disposition: Chest pain - Referrals Referrals: Zuleima Mohan MD [Primary Care Provider] - - Patient Instructions - Post Discharge Activity
[2018-10-07] MEDS ORDERED: ACETAMINOPHEN 325 MG TABLET (FP) PO ONE (16:26)
[2018-10-07 16:34] LABS: BASO % 0.6 % (0-2.0); EOS % 0.7 % (0-4.5); HEMATOCRIT 46.9 % (35.4-49); HEMOGLOBIN 15.9 GM/dL (11.7-16.9); LYMPH % 16.4 % (8-40); MCH 31.5 pg (25.7-33.7); MCHC 33.9 g/dl (32.0-35.9); MEAN PLT VOLUME 9.5 fl (7.5-11.1); MONO % 9.6 % (3.8-10.2); NEUT % 72.7 % (42.8-82.8); PLATELET COUNT 185 K/MM3 (134-434); RBC 5.04 M/mm3 (4.00-5.60); RDW 13.6 % (11.9-15.9); WHITE BLOOD COUNT 9.1 K/mm3 (4.0-10.0)
[2018-10-07] MEDS ORDERED: KETOROLAC TROMETHAMINE 15 MG/ML VIAL IM ONE (16:47)
[2018-10-07] MEDS ORDERED: ACETAMINOPHEN 325 MG TABLET (FP) ONE (16:50)
--- NOTE | 2018-10-07 16:53 | PDOC ---
Documentation entered by Adia Bobo SCRIBE, acting as scribe for Jovita Robertson DO. Jovita Robertson, DO: This documentation has been prepared by the Jeramie ardon Adrianna, SCRIBE, under my direction and personally reviewed by me in its entirety. I confirm that the documentation accurately reflects all work, treatment, procedures, and medical decision making performed by me. Attending Attestation - Resident Resident Name: Sylvie Archer - ED Attending Attestation I have performed the following: I have examined & evaluated the patient, The case was reviewed & discussed with the resident, I agree w/resident's findings & plan, Exceptions are as noted - HPI HPI: The patient is a 38 year old male, with a significant PMH of MS, benign frontal lobe lesion (treated with steroids), and mitral valve regurgitation, who presents to the ED for evaluation of chest pain. Patient endorses sharp, intermittent, left-sided chest pain that lasts for seconds at a time and self- resolves. Denies any radiation or pleuritic component. Patient believes it is an MS flare up, as he is done with his infusion treatments. Allergies: NKA, NKDA Surgical History: None reported Social History: Denies EtOH, tobacco, or illicit drug use PCP: Dr. Zuleima Mohan - Physicial Exam PE: Constitutional: Awake, alert, oriented. No acute distress. Head: Normocephalic. Atraumatic Eyes: +Erythematous conjunctiva of the left eye. +Some erythema to the left sclera. PERRL. EOMI. ENT: Mucous membranes are moist and intact. Posterior pharynx without exudates or erythema. Uvula midline. Neck: Supple. Full ROM. No lymphadenopathy. Cardiovascular: +Very mild anterior chest wall tenderness, not totally recreating pain but his muscles feel sore from MS. Regular rate. Regular rhythm. S1, S2 regular. Distal pulses are 2+ and symmetric. Pulmonary/Chest: No evidence of respiratory distress. Clear to auscultation bilaterally No wheezing, rales or rhonchi. Abdominal: Soft and non-distended. There is no tenderness. No rebound, guarding or rigidity. No organomegaly. No palpable masses. Good bowel sounds. Back: No CVA tenderness. Musculoskeletal: No edema. No cyanosis. No clubbing. Full range of motion in all extremities. Nocalf tenderness. Radial/pedal pulses are intact and 2+ bilaterally Skin: Skin is warm and dry. No petechiae. No purpura. Neurological: Alert and oriented to person, place, and time. Cranial nerves II -XII are grossly intact. Normal speech. Strength is grossly symmetric. No sensory deficits. Psychiatric: Good eye contact. Normal interaction, affect and behavior. - Medical Decision Making 10/07/18 16:49 I, Dr. Jovita Robertson, DO, attest that this document has been prepared under my direction and personally reviewed by me in its entirety. I further attest, that it accurately reflects all work, treatment, procedures and medical decision -making performed by me. 10/07/18 16:49 a/p: 38yo male with hx of MS who follows with a neurologist at [place] with cp that started at 4am today -lasts a few seconds, resolves spontaneously -intermittently occurs all days -has felt episodes of muscle spasms and worsening of MS symptoms -has not seen his neurologist or called with his symptoms since March -low suspicion for acs and PERC neg -no palpitations -no pleuritic component, no leg swelling, no calf cramping, no recent travel -no cough -no recent f/c -also c/o L eye itching and yellow discharge- consistent with conjunctivitis - will start erythromycin ointment -ekg without acute findings -cxr clear -will send labs 10/07/18 17:56 trop neg labs reviewed and stable cbc non acute pt states he wants to take his baclofen at home discussed follow up with neuro for his MS answered all questions stable for dc to home Heart Score/ECG Review - ECG Intrepretation Comment:: 10/07/18 16:48 sinus at 84, nl axis, nl interval, t wave inversions III which are nonspecific and unchanged from prior ekg 08/03/18
[2018-10-07 17:03] LABS: ALBUMIN 3.9 g/dl (3.4-5.0); CALCIUM 9.1 mg/dL (8.5-10.1); CREATININE 0.9 mg/dL (0.55-1.3); POTASSIUM 3.9 mmol/L (3.5-5.1); TOT PROT 7.1 g/dl (6.4-8.2)
[2018-10-07] MEDS ORDERED: KETOROLAC TROMETHAMINE 15 MG/ML VIAL ONE (17:06)
[2018-10-07 18:23] VITALS: BP 124/81; PULSE 78; TEMP 98
--- NOTE | 2018-10-08 10:32 | EKG ---
Test Reason : Blood Pressure : / mmHG Vent. Rate : 084 BPM Atrial Rate : 084 BPM P-R Int : 140 ms QRS Dur : 086 ms QT Int : 366 ms P-R-T Axes : 073 007 007 degrees QTc Int : 432 ms NORMAL SINUS RHYTHM POSSIBLE LEFT ATRIAL ENLARGEMENT BORDERLINE ECG WHEN COMPARED WITH ECG OF 03-AUG-2018 15:01, NO SIGNIFICANT CHANGE WAS FOUND Confirmed by CHRIST SMITH MD ([id number]) on 10/08/2018 10:32:15 AM Referred By: Confirmed By:CHRIST SMITH MD
== END 2018-10-07 18:26 | disposition home or self-care (01) ==
LOC: JER 14:12
PROC: 3E0233Z Introduction of Anti-inflammatory into Muscle, Percutaneous Approach (ICD-10-PCS; principal; 2018-10-07)
DX: R07.9 Chest pain, unspecified (principal)
CPT/HCPCS: 36415; 71046-TC-FY; 80053; 84484; 85025; 93005; 93010; 99283-25

== ENCOUNTER 2021-06-17 05:56 | Emergency (ER) | payer OTHER ==
[2021-06-17 06:13] VITALS: BMI 36.4
[2021-06-17 07:09] LABS: BASO % 0.7 % (0-2.0); EOS % 0.7 % (0-4.5); HEMATOCRIT 42.6 % (35.4-49); HEMOGLOBIN 14.6 GM/dL (11.7-16.9); LYMPH % 15.5 % (8-40); MCH 31.9 pg (25.7-33.7); MCHC 34.3 g/dl (32.0-35.9); MEAN CELL VOLUME 92.9 fl (80-96); MEAN PLT VOLUME 9.7 fl (7.5-11.1); MONO % 7.4 % (3.8-10.2); NEUT % 75.7 % (42.8-82.8); PLATELET COUNT 173 10^3/uL (134-434); RBC 4.58 M/mm3 (4.00-5.60); RDW 13.3 % (11.9-15.9)
[2021-06-17 07:27] LABS: ALBUMIN 3.5 g/dl (3.4-5.0); BLOOD UREA NITROGEN 19.6 mg/dL (7-18); CALCIUM 8.9 mg/dL (8.5-10.1)
[2021-06-17 07:30] LABS: CREATININE 0.9 mg/dL (0.55-1.3)
[2021-06-17 07:32] LABS: BILIRUBIN,TOTAL 0.6 mg/dL (0.2-1); TOT PROT 6.9 g/dl (6.4-8.2)
[2021-06-17] MEDS ORDERED: BACLOFEN 10 MG TABLET (FP) ONE (08:53)
[2021-06-17] MEDS ORDERED: BACLOFEN 10 MG TABLET (FP) PO ONE (08:53)
[2021-06-17 10:43] VITALS: BP 133/84; PULSE 64; TEMP 98.7
== END 2021-06-17 10:49 | disposition home or self-care (01) ==
LOC: JER 05:56
DX: R07.89 Other chest pain (principal)
CPT/HCPCS: 0241U-QW; 36415; 71045-TC-FY; 80053; 84443; 84484; 85025; 87807; 93005; 93010; 93971-TC; 99285-25; C9803-CS; J0475; U0003; U0005